=== PATIENT | male | born 1960 | race Caucasian/White ===

== ENCOUNTER 2016-08-30 13:59 | Outpatient (CLI) ==
[2016-06-21 03:43] VITALS: BMI 23.7
== END 2016-08-30 14:00 ==
LOC: AMBL 13:59
PROVIDERS: ATTEND Emergency Medicine
DX: R53.1 Weakness (principal); R42 Dizziness and giddiness; R68.89 Other general symptoms and signs; K72.90 Hepatic failure, unspecified without coma; R00.1 Bradycardia, unspecified

== ENCOUNTER 2016-09-02 12:37 | Outpatient (CLI) ==
[2016-06-21 03:43] VITALS: BMI 23.7
[2016-09-02 13:04] LABS: ALBUMIN 2.9 g/dL (3.4-5.0); ALBUMIN/GLOBULIN RATIO 1.07; ANION GAP 12.4; BILIRUBIN,TOTAL 1.41 mg/dL (0.00-1.20); BUN/CREATININE RATIO 19.31; CALCIUM 8.8 mg/dL (8.2-10.2); CREATININE 0.88 mg/dL (0.60-1.10); POTASSIUM 4.4 mmol/L (3.5-5.1); TOTAL PROTEIN 5.6 g/dL (6.4-8.2)
== END 2016-09-02 12:38 | disposition home or self-care (01) ==
LOC: NONPT 12:37
PROVIDERS: ATTEND Family Medicine
DX: E72.29 Other disorders of urea cycle metabolism (principal); K70.30 Alcoholic cirrhosis of liver without ascites; M62.81 Muscle weakness (generalized); K21.9 Gastro-esophageal reflux disease without esophagitis
CPT/HCPCS: 80053

== ENCOUNTER 2016-09-07 12:51 | Outpatient (CLI) | payer OTHER ==
[2016-06-21 03:43] VITALS: BMI 23.7
[2016-09-07 13:35] LABS: ALBUMIN 2.8 g/dL (3.4-5.0); ALBUMIN/GLOBULIN RATIO 1.17; ANION GAP 9.2; BILIRUBIN,TOTAL 0.99 mg/dL (0.00-1.20); BUN/CREATININE RATIO 20.73; CALCIUM 8.6 mg/dL (8.2-10.2); CREATININE 0.82 mg/dL (0.60-1.10); POTASSIUM 4.2 mmol/L (3.5-5.1); TOTAL PROTEIN 5.2 g/dL (6.4-8.2)
== END 2016-09-07 12:52 | disposition home or self-care (01) ==
LOC: NONPT 12:51
PROVIDERS: ATTEND Family Medicine
DX: E72.29 Other disorders of urea cycle metabolism (principal); K70.30 Alcoholic cirrhosis of liver without ascites; M62.81 Muscle weakness (generalized)
CPT/HCPCS: 80053; 82140

== ENCOUNTER 2016-09-13 11:30 | Outpatient (CLI) ==
[2016-06-21 03:43] VITALS: BMI 23.7
[2016-09-13 12:09] LABS: ALBUMIN 2.7 g/dL (3.4-5.0); ALBUMIN/GLOBULIN RATIO 1.04; ANION GAP 8.3; BILIRUBIN,TOTAL 1.05 mg/dL (0.00-1.20); BUN/CREATININE RATIO 16.27; CALCIUM 8.5 mg/dL (8.2-10.2); CREATININE 0.86 mg/dL (0.60-1.10); POTASSIUM 4.3 mmol/L (3.5-5.1); TOTAL PROTEIN 5.3 g/dL (6.4-8.2)
== END 2016-09-13 11:31 | disposition home or self-care (01) ==
LOC: NONPT 11:30
PROVIDERS: ATTEND Family Medicine
DX: M62.81 Muscle weakness (generalized) (principal); E72.29 Other disorders of urea cycle metabolism; K70.30 Alcoholic cirrhosis of liver without ascites
CPT/HCPCS: 80053; 82140

== ENCOUNTER 2016-09-20 20:59 | Outpatient (CLI) ==
[2016-06-21 03:43] VITALS: BMI 23.7
[2016-09-20 21:34] LABS: ALBUMIN 2.7 g/dL (3.4-5.0); ANION GAP 10.8; BILIRUBIN,TOTAL 1.05 mg/dL (0.00-1.20); BUN/CREATININE RATIO 14.28; CALCIUM 8.4 mg/dL (8.2-10.2); CREATININE 0.84 mg/dL (0.60-1.10); POTASSIUM 3.8 mmol/L (3.5-5.1); TOTAL PROTEIN 5.4 g/dL (6.4-8.2)
== END 2016-09-20 21:00 | disposition home or self-care (01) ==
LOC: NONPT 20:59
PROVIDERS: ATTEND Family Medicine
DX: K72.90 Hepatic failure, unspecified without coma (principal)
CPT/HCPCS: 80053; 82140

== ENCOUNTER 2016-09-27 13:54 | Outpatient (CLI) ==
[2016-06-21 03:43] VITALS: BMI 23.7
[2016-09-27 14:14] LABS: ALBUMIN 2.9 g/dL (3.4-5.0); ANION GAP 10.1; BILIRUBIN,TOTAL 1.24 mg/dL (0.00-1.20); BUN/CREATININE RATIO 14.94; CALCIUM 9.2 mg/dL (8.2-10.2); CREATININE 0.87 mg/dL (0.60-1.10); POTASSIUM 4.1 mmol/L (3.5-5.1); TOTAL PROTEIN 5.8 g/dL (6.4-8.2)
== END 2016-09-27 13:55 | disposition home or self-care (01) ==
LOC: NONPT 13:54
PROVIDERS: ATTEND Family Medicine
DX: K72.90 Hepatic failure, unspecified without coma (principal); I10 Essential (primary) hypertension; E11.43 Type 2 diabetes mellitus with diabetic autonomic (poly)neuropathy; I25.10 Atherosclerotic heart disease of native coronary artery without angina pectoris; R41.82 Altered mental status, unspecified
CPT/HCPCS: 80053; 82140

== ENCOUNTER 2016-10-04 14:12 | Outpatient (CLI) ==
[2016-06-21 03:43] VITALS: BMI 23.7
[2016-10-04 14:45] LABS: ALBUMIN 2.9 g/dL (3.4-5.0); ALBUMIN/GLOBULIN RATIO 0.97; ANION GAP 10.2; BILIRUBIN,TOTAL 0.88 mg/dL (0.00-1.20); BUN/CREATININE RATIO 17.24; CALCIUM 9.1 mg/dL (8.2-10.2); CREATININE 0.87 mg/dL (0.60-1.10); POTASSIUM 4.2 mmol/L (3.5-5.1); TOTAL PROTEIN 5.9 g/dL (6.4-8.2)
== END 2016-10-04 14:13 | disposition home or self-care (01) ==
LOC: NONPT 14:12
PROVIDERS: ATTEND Family Medicine
DX: K72.90 Hepatic failure, unspecified without coma (principal); I10 Essential (primary) hypertension; E11.43 Type 2 diabetes mellitus with diabetic autonomic (poly)neuropathy; I25.10 Atherosclerotic heart disease of native coronary artery without angina pectoris; R41.82 Altered mental status, unspecified
CPT/HCPCS: 80053; 82140

== ENCOUNTER 2016-10-11 10:13 | Outpatient (CLI) | payer OTHER ==
[2016-06-21 03:43] VITALS: BMI 23.7
== END 2016-10-11 10:14 | disposition home or self-care (01) ==
LOC: NONPT 10:13
PROVIDERS: ATTEND Family Medicine
DX: K72.90 Hepatic failure, unspecified without coma (principal)
CPT/HCPCS: 82140

== ENCOUNTER 2016-10-12 13:45 | Outpatient (CLI) ==
[2016-06-21 03:43] VITALS: BMI 23.7
[2016-10-12 14:09] LABS: ALBUMIN/GLOBULIN RATIO 0.97; ANION GAP 11.7; BILIRUBIN,TOTAL 1.75 mg/dL (0.00-1.20); BUN/CREATININE RATIO 13.13; CALCIUM 8.7 mg/dL (8.2-10.2); CREATININE 0.99 mg/dL (0.60-1.10); POTASSIUM 3.7 mmol/L (3.5-5.1); TOTAL PROTEIN 6.1 g/dL (6.4-8.2)
== END 2016-10-12 13:46 | disposition home or self-care (01) ==
LOC: NONPT 13:45
PROVIDERS: ATTEND Family Medicine
DX: K72.90 Hepatic failure, unspecified without coma (principal)
CPT/HCPCS: 80053

== ENCOUNTER 2016-10-18 14:50 | Outpatient (CLI) ==
[2016-06-21 03:43] VITALS: BMI 23.7
[2016-10-18 15:13] LABS: ALBUMIN/GLOBULIN RATIO 1.03; ANION GAP 11.2; BILIRUBIN,TOTAL 1.35 mg/dL (0.00-1.20); BUN/CREATININE RATIO 11.4; CALCIUM 8.6 mg/dL (8.2-10.2); CREATININE 1.14 mg/dL (0.60-1.10); POTASSIUM 4.2 mmol/L (3.5-5.1); TOTAL PROTEIN 5.9 g/dL (6.4-8.2)
== END 2016-10-18 14:51 | disposition home or self-care (01) ==
LOC: NONPT 14:50
PROVIDERS: ATTEND Family Medicine
DX: K72.90 Hepatic failure, unspecified without coma (principal); I10 Essential (primary) hypertension; E11.43 Type 2 diabetes mellitus with diabetic autonomic (poly)neuropathy; I25.10 Atherosclerotic heart disease of native coronary artery without angina pectoris; R41.82 Altered mental status, unspecified
CPT/HCPCS: 80053; 82140

== ENCOUNTER 2016-10-25 14:54 | Outpatient (CLI) ==
[2016-06-21 03:43] VITALS: BMI 23.7
[2016-10-25 15:12] LABS: HEMATOCRIT 35.9 % (42.0-52.0); HEMOGLOBIN 12.2 g/dl (14.0-18.0); MEAN CORPUSCULAR HEMOGLOBIN 32.3 pg (27.0-31.0); RED BLOOD COUNT 3.78 10^6/ul (4.70-6.10); WHITE BLOOD COUNT 5.78 K/ul (4.2-10.2)
[2016-10-25 15:35] LABS: ALBUMIN 2.7 g/dL (3.4-5.0); ALBUMIN/GLOBULIN RATIO 0.96; BILIRUBIN,TOTAL 1.01 mg/dL (0.00-1.20); BUN/CREATININE RATIO 14.28; CALCIUM 8.9 mg/dL (8.2-10.2); CREATININE 0.84 mg/dL (0.60-1.10); TOTAL PROTEIN 5.5 g/dL (6.4-8.2)
== END 2016-10-25 14:55 | disposition home or self-care (01) ==
LOC: NONPT 14:54
PROVIDERS: ATTEND Family Medicine
DX: K72.90 Hepatic failure, unspecified without coma (principal); I10 Essential (primary) hypertension; E11.43 Type 2 diabetes mellitus with diabetic autonomic (poly)neuropathy; I25.10 Atherosclerotic heart disease of native coronary artery without angina pectoris; R41.82 Altered mental status, unspecified
CPT/HCPCS: 80053; 82140; 83036; 85025; 85027

== ENCOUNTER 2016-11-01 12:30 | Outpatient (CLI) | payer OTHER ==
[2016-06-21 03:43] VITALS: BMI 23.7
[2016-11-01 12:56] LABS: ALBUMIN/GLOBULIN RATIO 0.83; ANION GAP 11.7; BILIRUBIN,TOTAL 1.21 mg/dL (0.00-1.20); BUN/CREATININE RATIO 17.44; CALCIUM 8.6 mg/dL (8.2-10.2); CREATININE 0.86 mg/dL (0.60-1.10); POTASSIUM 3.7 mmol/L (3.5-5.1); TOTAL PROTEIN 6.6 g/dL (6.4-8.2)
== END 2016-11-01 12:31 | disposition home or self-care (01) ==
LOC: NONPT 12:30
PROVIDERS: ATTEND Family Medicine
DX: K72.90 Hepatic failure, unspecified without coma (principal); E11.43 Type 2 diabetes mellitus with diabetic autonomic (poly)neuropathy; E72.29 Other disorders of urea cycle metabolism; K70.30 Alcoholic cirrhosis of liver without ascites; M54.17 Radiculopathy, lumbosacral region; M62.81 Muscle weakness (generalized)
CPT/HCPCS: 80053; 82140

== ENCOUNTER 2016-11-10 14:09 | Outpatient (CLI) ==
[2016-06-21 03:43] VITALS: BMI 23.7
[2016-11-10 14:32] LABS: ALBUMIN/GLOBULIN RATIO 1.03; ANION GAP 12.1; BILIRUBIN,TOTAL 1.18 mg/dL (0.00-1.20); BUN/CREATININE RATIO 14.6; CREATININE 0.89 mg/dL (0.60-1.10); POTASSIUM 4.1 mmol/L (3.5-5.1); TOTAL PROTEIN 5.9 g/dL (6.4-8.2)
== END 2016-11-10 14:10 | disposition home or self-care (01) ==
LOC: NONPT 14:09
PROVIDERS: ATTEND Family Medicine
DX: K72.90 Hepatic failure, unspecified without coma (principal); E11.43 Type 2 diabetes mellitus with diabetic autonomic (poly)neuropathy; E72.29 Other disorders of urea cycle metabolism; K70.30 Alcoholic cirrhosis of liver without ascites; M54.17 Radiculopathy, lumbosacral region; M62.81 Muscle weakness (generalized)
CPT/HCPCS: 80053; 82140

== ENCOUNTER 2016-11-15 10:16 | Outpatient (CLI) ==
[2016-06-21 03:43] VITALS: BMI 23.7
[2016-11-15 10:51] LABS: ALBUMIN 3.1 g/dL (3.4-5.0); ALBUMIN/GLOBULIN RATIO 1.07; ANION GAP 12.8; BILIRUBIN,TOTAL 1.4 mg/dL (0.00-1.20); BUN/CREATININE RATIO 13.63; CALCIUM 9.1 mg/dL (8.2-10.2); CREATININE 0.88 mg/dL (0.60-1.10); POTASSIUM 3.8 mmol/L (3.5-5.1)
== END 2016-11-15 10:17 | disposition home or self-care (01) ==
LOC: NONPT 10:16
PROVIDERS: ATTEND Family Medicine
DX: K72.90 Hepatic failure, unspecified without coma (principal)
CPT/HCPCS: 80053; 82140

== ENCOUNTER 2016-11-23 12:54 | Outpatient (CLI) ==
[2016-06-21 03:43] VITALS: BMI 23.7
[2016-11-23 13:20] LABS: ALBUMIN 3.1 g/dL (3.4-5.0); ANION GAP 9.7; BILIRUBIN,TOTAL 0.97 mg/dL (0.00-1.20); BUN/CREATININE RATIO 22.07; CALCIUM 8.9 mg/dL (8.2-10.2); CREATININE 0.77 mg/dL (0.60-1.10); POTASSIUM 3.7 mmol/L (3.5-5.1); TOTAL PROTEIN 6.2 g/dL (6.4-8.2)
== END 2016-11-23 12:55 | disposition home or self-care (01) ==
LOC: NONPT 12:54
PROVIDERS: ATTEND Family Medicine
DX: K72.90 Hepatic failure, unspecified without coma (principal); K70.30 Alcoholic cirrhosis of liver without ascites; E72.29 Other disorders of urea cycle metabolism; M54.17 Radiculopathy, lumbosacral region; M62.81 Muscle weakness (generalized); E11.43 Type 2 diabetes mellitus with diabetic autonomic (poly)neuropathy
CPT/HCPCS: 80053; 82140

== ENCOUNTER 2016-11-29 15:15 | Outpatient (CLI) | payer OTHER ==
[2016-06-21 03:43] VITALS: BMI 23.7
[2016-11-29 15:45] LABS: ALBUMIN 3.1 g/dL (3.4-5.0); ALBUMIN/GLOBULIN RATIO 1.29; BILIRUBIN,TOTAL 1.15 mg/dL (0.00-1.20); BUN/CREATININE RATIO 14.11; CALCIUM 8.9 mg/dL (8.2-10.2); CREATININE 0.85 mg/dL (0.60-1.10); TOTAL PROTEIN 5.5 g/dL (6.4-8.2)
== END 2016-11-29 15:16 | disposition home or self-care (01) ==
LOC: NONPT 15:15
PROVIDERS: ATTEND Family Medicine
DX: K72.90 Hepatic failure, unspecified without coma (principal)
CPT/HCPCS: 80053; 82140

== ENCOUNTER 2016-12-06 12:17 | Outpatient (CLI) | payer OTHER ==
[2016-06-21 03:43] VITALS: BMI 23.7
[2016-12-06 13:05] LABS: ALBUMIN 3.1 g/dL (3.4-5.0); ALBUMIN/GLOBULIN RATIO 1.11; ANION GAP 8.8; BILIRUBIN,TOTAL 1.71 mg/dL (0.00-1.20); BUN/CREATININE RATIO 14.11; CALCIUM 9.6 mg/dL (8.2-10.2); CREATININE 0.85 mg/dL (0.60-1.10); POTASSIUM 3.8 mmol/L (3.5-5.1); TOTAL PROTEIN 5.9 g/dL (6.4-8.2)
== END 2016-12-06 12:18 | disposition home or self-care (01) ==
LOC: NONPT 12:17
PROVIDERS: ATTEND Family Medicine
DX: K72.90 Hepatic failure, unspecified without coma (principal)
CPT/HCPCS: 80053; 82140

== ENCOUNTER 2016-12-13 10:27 | Outpatient (CLI) | payer OTHER ==
[2016-06-21 03:43] VITALS: BMI 23.7
[2016-12-13 11:02] LABS: ALBUMIN 3.3 g/dL (3.4-5.0); ANION GAP 13.5; BILIRUBIN,TOTAL 2.35 mg/dL (0.00-1.20); BUN/CREATININE RATIO 10.11; CALCIUM 9.5 mg/dL (8.2-10.2); CREATININE 0.89 mg/dL (0.60-1.10); POTASSIUM 3.5 mmol/L (3.5-5.1); TOTAL PROTEIN 6.6 g/dL (6.4-8.2)
== END 2016-12-13 10:28 | disposition home or self-care (01) ==
LOC: LAB 10:27
PROVIDERS: ATTEND Family Medicine
DX: K72.90 Hepatic failure, unspecified without coma (principal); K70.30 Alcoholic cirrhosis of liver without ascites; E72.29 Other disorders of urea cycle metabolism; E11.43 Type 2 diabetes mellitus with diabetic autonomic (poly)neuropathy; M54.17 Radiculopathy, lumbosacral region; M62.81 Muscle weakness (generalized)
CPT/HCPCS: 36415; 80053; 82140

== ENCOUNTER 2016-12-20 13:24 | Outpatient (CLI) ==
[2016-06-21 03:43] VITALS: BMI 23.7
[2016-12-20 13:41] LABS: ALBUMIN/GLOBULIN RATIO 1.07; ANION GAP 10.9; BILIRUBIN,TOTAL 1.24 mg/dL (0.00-1.20); BUN/CREATININE RATIO 10.58; CALCIUM 8.8 mg/dL (8.2-10.2); CREATININE 0.85 mg/dL (0.60-1.10); POTASSIUM 3.9 mmol/L (3.5-5.1); TOTAL PROTEIN 5.8 g/dL (6.4-8.2)
== END 2016-12-20 13:25 | disposition home or self-care (01) ==
LOC: NONPT 13:24
PROVIDERS: ATTEND Family Medicine
DX: K72.90 Hepatic failure, unspecified without coma (principal)
CPT/HCPCS: 80053; 82140

== ENCOUNTER 2016-12-27 10:19 | Outpatient (CLI) ==
[2016-06-21 03:43] VITALS: BMI 23.7
[2016-12-27 11:01] LABS: ALBUMIN 3.2 g/dL (3.4-5.0); ALBUMIN/GLOBULIN RATIO 1.14; ANION GAP 12.9; BILIRUBIN,TOTAL 1.82 mg/dL (0.00-1.20); BUN/CREATININE RATIO 11.7; CALCIUM 8.9 mg/dL (8.2-10.2); CREATININE 0.94 mg/dL (0.60-1.10); POTASSIUM 3.9 mmol/L (3.5-5.1)
== END 2016-12-27 10:20 | disposition home or self-care (01) ==
LOC: NONPT 10:19
PROVIDERS: ATTEND Family Medicine
DX: K72.90 Hepatic failure, unspecified without coma (principal)
CPT/HCPCS: 80053; 82140

== ENCOUNTER 2017-01-03 16:14 | Outpatient (CLI) ==
[2016-06-21 03:43] VITALS: BMI 23.7
[2017-01-03 16:53] LABS: POTASSIUM 4.3 mmol/L (3.5-5.1)
[2017-01-03 16:54] LABS: ALBUMIN 3.1 g/dL (3.4-5.0); ALBUMIN/GLOBULIN RATIO 1.11; ANION GAP 15.3; BILIRUBIN,TOTAL 1.05 mg/dL (0.00-1.20); BUN/CREATININE RATIO 12.79; CALCIUM 9.1 mg/dL (8.2-10.2); CREATININE 0.86 mg/dL (0.60-1.10); TOTAL PROTEIN 5.9 g/dL (6.4-8.2)
== END 2017-01-03 16:15 | disposition home or self-care (01) ==
LOC: NONPT 16:14
PROVIDERS: ATTEND Family Medicine
DX: K72.90 Hepatic failure, unspecified without coma (principal)
CPT/HCPCS: 80053; 82140

== ENCOUNTER 2017-01-12 14:40 | Outpatient (CLI) ==
[2016-06-21 03:43] VITALS: BMI 23.7
[2017-01-12 15:09] LABS: ALBUMIN 3.2 g/dL (3.4-5.0); ALBUMIN/GLOBULIN RATIO 1.1; ANION GAP 15.9; BILIRUBIN,TOTAL 1.71 mg/dL (0.00-1.20); BUN/CREATININE RATIO 11.7; CALCIUM 8.9 mg/dL (8.2-10.2); CREATININE 0.94 mg/dL (0.60-1.10); POTASSIUM 3.9 mmol/L (3.5-5.1); TOTAL PROTEIN 6.1 g/dL (6.4-8.2)
== END 2017-01-12 14:41 | disposition home or self-care (01) ==
LOC: NONPT 14:40
PROVIDERS: ATTEND Family Medicine
DX: K72.90 Hepatic failure, unspecified without coma (principal)
CPT/HCPCS: 80053; 82140

== ENCOUNTER 2017-01-18 20:05 | Outpatient (CLI) | payer OTHER ==
[2016-06-21 03:43] VITALS: BMI 23.7
[2017-01-18 20:10] LABS: ALBUMIN 3.1 g/dL (3.4-5.0); ALBUMIN/GLOBULIN RATIO 1.03; ANION GAP 13.9; BILIRUBIN,TOTAL 1.15 mg/dL (0.00-1.20); BUN/CREATININE RATIO 10.98; CALCIUM 9.1 mg/dL (8.2-10.2); CREATININE 0.91 mg/dL (0.60-1.10); POTASSIUM 3.9 mmol/L (3.5-5.1); TOTAL PROTEIN 6.1 g/dL (6.4-8.2)
== END 2017-01-18 20:06 | disposition home or self-care (01) ==
LOC: NONPT 20:05
PROVIDERS: ATTEND Family Medicine
DX: K72.90 Hepatic failure, unspecified without coma (principal)
CPT/HCPCS: 80053; 82140

== ENCOUNTER 2017-01-24 14:50 | Outpatient (CLI) ==
[2016-06-21 03:43] VITALS: BMI 23.7
[2017-01-24 15:08] LABS: ALBUMIN 3.2 g/dL (3.4-5.0); ALBUMIN/GLOBULIN RATIO 1.03; CALCIUM 9.5 mg/dL (8.2-10.2); POTASSIUM 3.9 mmol/L (3.5-5.1); TOTAL PROTEIN 6.3 g/dL (6.4-8.2)
[2017-01-24 15:09] LABS: ANION GAP 11.9; BILIRUBIN,TOTAL 1.6 mg/dL (0.00-1.20); BUN/CREATININE RATIO 8.18; CREATININE 1.1 mg/dL (0.60-1.10)
== END 2017-01-24 14:51 | disposition home or self-care (01) ==
LOC: NONPT 14:50
PROVIDERS: ATTEND Family Medicine
DX: K72.90 Hepatic failure, unspecified without coma (principal)
CPT/HCPCS: 80053; 82140

== ENCOUNTER 2017-01-31 13:45 | Outpatient (CLI) ==
[2016-06-21 03:43] VITALS: BMI 23.7
== END 2017-01-31 13:46 | disposition home or self-care (01) ==
LOC: NONPT 13:45
PROVIDERS: ATTEND Family Medicine
DX: K72.90 Hepatic failure, unspecified without coma (principal); I10 Essential (primary) hypertension
CPT/HCPCS: 82140

== ENCOUNTER 2017-02-07 15:30 | Outpatient (CLI) ==
[2016-06-21 03:43] VITALS: BMI 23.7
[2017-02-07 16:26] LABS: ANION GAP 13.1; BILIRUBIN,TOTAL 1.2 mg/dL (0.00-1.20); BUN/CREATININE RATIO 9.34; CALCIUM 9.2 mg/dL (8.2-10.2); CREATININE 1.07 mg/dL (0.60-1.10); POTASSIUM 4.1 mmol/L (3.5-5.1)
== END 2017-02-07 15:31 | disposition home or self-care (01) ==
LOC: LAB 15:30
PROVIDERS: ATTEND Family Medicine
DX: K72.90 Hepatic failure, unspecified without coma (principal); E11.43 Type 2 diabetes mellitus with diabetic autonomic (poly)neuropathy; M54.17 Radiculopathy, lumbosacral region; M62.81 Muscle weakness (generalized); E72.29 Other disorders of urea cycle metabolism; K70.30 Alcoholic cirrhosis of liver without ascites
CPT/HCPCS: 36415; 80053; 82140

== ENCOUNTER 2017-02-14 13:42 | Outpatient (CLI) ==
[2016-06-21 03:43] VITALS: BMI 23.7
[2017-02-14 15:07] LABS: ALBUMIN 3.1 g/dL (3.4-5.0); ALBUMIN/GLOBULIN RATIO 1.07; ANION GAP 15.8; BILIRUBIN,TOTAL 1.87 mg/dL (0.00-1.20); BUN/CREATININE RATIO 10.46; CALCIUM 9.4 mg/dL (8.2-10.2); CREATININE 0.86 mg/dL (0.60-1.10); POTASSIUM 3.8 mmol/L (3.5-5.1)
== END 2017-02-14 13:43 | disposition home or self-care (01) ==
LOC: NONPT 13:42
PROVIDERS: ATTEND Family Medicine
DX: K72.90 Hepatic failure, unspecified without coma (principal); E11.43 Type 2 diabetes mellitus with diabetic autonomic (poly)neuropathy; M54.17 Radiculopathy, lumbosacral region; M62.81 Muscle weakness (generalized); E72.29 Other disorders of urea cycle metabolism; K70.30 Alcoholic cirrhosis of liver without ascites
CPT/HCPCS: 80053; 82140

== ENCOUNTER 2017-02-21 14:08 | Outpatient (CLI) ==
[2016-06-21 03:43] VITALS: BMI 23.7
[2017-02-21 14:38] LABS: ALBUMIN 3.3 g/dL (3.4-5.0); ALBUMIN/GLOBULIN RATIO 1.1; ANION GAP 15.2; BILIRUBIN,TOTAL 1.85 mg/dL (0.00-1.20); BUN/CREATININE RATIO 10.22; CALCIUM 9.2 mg/dL (8.2-10.2); CREATININE 0.88 mg/dL (0.60-1.10); POTASSIUM 3.2 mmol/L (3.5-5.1); TOTAL PROTEIN 6.3 g/dL (6.4-8.2)
== END 2017-02-21 14:09 | disposition home or self-care (01) ==
LOC: NONPT 14:08
PROVIDERS: ATTEND Family Medicine
DX: K72.90 Hepatic failure, unspecified without coma (principal); E11.43 Type 2 diabetes mellitus with diabetic autonomic (poly)neuropathy; M54.17 Radiculopathy, lumbosacral region; M62.81 Muscle weakness (generalized); E72.29 Other disorders of urea cycle metabolism; K70.30 Alcoholic cirrhosis of liver without ascites
CPT/HCPCS: 80053; 82140

== ENCOUNTER 2017-02-28 11:58 | Outpatient (CLI) ==
[2016-06-21 03:43] VITALS: BMI 23.7
== END 2017-02-28 11:59 | disposition home or self-care (01) ==
LOC: NONPT 11:58
PROVIDERS: ATTEND Family Medicine
DX: K72.90 Hepatic failure, unspecified without coma (principal)
CPT/HCPCS: 82140

== ENCOUNTER 2017-03-07 15:24 | Outpatient (CLI) ==
[2016-06-21 03:43] VITALS: BMI 23.7
== END 2017-03-07 15:25 | disposition home or self-care (01) ==
LOC: NONPT 15:24
PROVIDERS: ATTEND Family Medicine
DX: K72.90 Hepatic failure, unspecified without coma (principal)
CPT/HCPCS: 82140

== ENCOUNTER 2018-01-09 14:56 | Outpatient (CLI) ==
[2016-06-21 03:43] VITALS: BMI 23.7
== END 2018-01-09 14:57 | disposition home or self-care (01) ==
LOC: LAB 14:56
PROVIDERS: ATTEND Emergency Medicine
DX: F41.1 Generalized anxiety disorder (principal); F33.1 Major depressive disorder, recurrent, moderate; K58.0 Irritable bowel syndrome with diarrhea; K70.30 Alcoholic cirrhosis of liver without ascites
CPT/HCPCS: 36415; 80053; 82140; 85025; 85610

== ENCOUNTER 2018-01-30 10:17 | Outpatient (CLI) ==
[2016-06-21 03:43] VITALS: BMI 23.7
== END 2018-01-30 10:18 | disposition home or self-care (01) ==
LOC: CAR 10:17
PROVIDERS: ATTEND Emergency Medicine
DX: R00.2 Palpitations (principal); K70.30 Alcoholic cirrhosis of liver without ascites
CPT/HCPCS: 36415; 82140; 84436; 84443; 84479; 93005; 93010

== ENCOUNTER 2018-03-14 12:28 | Outpatient (CLI) ==
[2016-06-21 03:43] VITALS: BMI 23.7
== END 2018-03-14 12:29 | disposition home or self-care (01) ==
LOC: FCC-LAB 12:28
PROVIDERS: ATTEND Nurse Practitioner Family
DX: K72.90 Hepatic failure, unspecified without coma (principal); I10 Essential (primary) hypertension
CPT/HCPCS: 36415; 80053; 85025; 85610

== ENCOUNTER 2018-05-08 11:59 | Outpatient (CLI) | payer OTHER ==
[2016-06-21 03:43] VITALS: BMI 23.7
== END 2018-05-08 12:00 | disposition home or self-care (01) ==
LOC: FCC-LAB 11:59
PROVIDERS: ATTEND Nurse Practitioner Family
DX: K70.30 Alcoholic cirrhosis of liver without ascites (principal); I10 Essential (primary) hypertension
CPT/HCPCS: 36415; 80053; 82140

== ENCOUNTER 2018-10-26 09:59 | Outpatient (CLI) | payer OTHER ==
[2016-06-21 03:43] VITALS: BMI 23.7
== END 2018-10-26 10:00 | disposition home or self-care (01) ==
LOC: RHC-LAB 09:59 → FCC-LAB 10:00
PROVIDERS: ATTEND Nurse Practitioner Family
DX: Z51.81 Encounter for therapeutic drug level monitoring (principal); Z79.899 Other long term (current) drug therapy
CPT/HCPCS: 80306

== ENCOUNTER 2018-11-24 14:06 | Outpatient (CLI) | payer OTHER ==
[2016-06-21 03:43] VITALS: BMI 23.7
== END 2018-11-24 14:07 | disposition home or self-care (01) ==
LOC: LAB 14:06
PROVIDERS: ATTEND Nurse Practitioner Family
DX: Z51.81 Encounter for therapeutic drug level monitoring (principal); Z79.899 Other long term (current) drug therapy; I10 Essential (primary) hypertension; K70.30 Alcoholic cirrhosis of liver without ascites
CPT/HCPCS: 36415; 80053; 80306; 82140; 85025; 85610

== ENCOUNTER 2018-11-24 15:57 | Outpatient (CLI) | payer OTHER ==
[2016-06-21 03:43] VITALS: BMI 23.7
== END 2018-11-24 15:58 | disposition home or self-care (01) ==
LOC: RHC-LAB 15:57 → FCC-LAB 15:58
PROVIDERS: ATTEND Nurse Practitioner Family
DX: Z51.81 Encounter for therapeutic drug level monitoring (principal); Z79.899 Other long term (current) drug therapy; I10 Essential (primary) hypertension; K70.30 Alcoholic cirrhosis of liver without ascites
CPT/HCPCS: 36415; 80053; 82140; 85025; 85610

== ENCOUNTER 2018-11-30 08:01 | Outpatient (CLI) | payer OTHER ==
[2016-06-21 03:43] VITALS: BMI 23.7
== END 2018-11-30 08:02 | disposition home or self-care (01) ==
LOC: LAB 08:01
PROVIDERS: ATTEND Nurse Practitioner Family
DX: E87.6 Hypokalemia (principal); K70.30 Alcoholic cirrhosis of liver without ascites; R17 Unspecified jaundice
CPT/HCPCS: 36415; 80053

== ENCOUNTER 2019-02-16 13:14 | Outpatient (CLI) ==
[2019-01-19 12:58] VITALS: BMI 24.1
== END 2019-02-16 13:15 | disposition home or self-care (01) ==
LOC: LAB 13:14
PROVIDERS: ATTEND Nurse Practitioner Family
DX: K74.60 Unspecified cirrhosis of liver (principal)
CPT/HCPCS: 36415; 82140

== ENCOUNTER 2019-02-21 16:23 | Outpatient (CLI) ==
[2019-01-19 12:58] VITALS: BMI 24.1
--- NOTE | 2019-02-21 17:14 | US ---
EXAM: SCROTAL ULTRASOUND HISTORY: Scrotal pain FINDINGS: Scrotal ultrasound exam performed using real time mehta-scale and color-flow Doppler imaging. The right testis measures 4.0 x 2.4 x 2.9 cm and the left measures 2.8 x 2.0 x 2.4 cm. Testes demo nstrated adequate blood flow bilaterally and symmetric echogenicity. Cannot exclude mild microlithia sis within both testes. There is a linear soft tissue opacity within the right scrotum thought to re present a appendage testis. Relatively large bilateral hydroceles are present. Varicoceles are sugg ested at least on the left. The scrotal wall is thickened. IMPRESSION: 1. Testes demonstrated adequate blood flow and normal, symmetric echogenicity. Cannot exclude micro lithiasis. 2. Relatively large bilateral hydroceles. 3. Varicocele, at least on the left. 4. Thickened scrotal wall suggesting cellulitis.
== END 2019-02-21 16:24 | disposition home or self-care (01) ==
LOC: RAD 16:23
PROVIDERS: ATTEND Nurse Practitioner Family
DX: N50.819 Testicular pain, unspecified (principal)

== ENCOUNTER 2019-02-26 02:52 | Emergency (ER) | payer OTHER ==
[2019-02-26 02:55] VITALS: BP 151/91; TEMP 97.9; BMI 25.6
--- NOTE | 2019-02-26 03:21 | ED.PDOC ---
General ED Provider: Dr. YASMIN JACKSON Chief Complaint: Penile Problem Stated Complaint: Right Testicular pain for two weeks, was seen in the clinic and had an US done and he was placed on Bactrium. States that the bactrium keeps him up at night and that the pain is worse. Time Seen by Physician: 03:00 Mode of Arrival: Walk-In Information Source: Patient Primary Care Provider: MARTIR TRIVEDI Nursing and Triage Documentation Reviewed and Agree: Yes Does patient meet sepsis criteria?: No System Inflammatory Response Syndrome: Not Applicable Sepsis Protocol: For patient's 13 years and over: Temp is 96.8 and below OR 101 and greater Pulse >90 BPM Resp >20/minute Acutely Altered Mental Status Are patient's symptoms suggestive of a new infection, such as: -Pneumonia -Skin, Soft Tissue -Endocarditis -UTI -Bone, Joint Infection -Implantable Device -Acute Abdominal Infection -Wound Infection -Meningitis -Blood Stream Catheter Infection -Unknown Review of Systems - Review Of Systems Constitutional: Reports: No symptoms Eyes: Reports: No symptoms Ears, Nose, Mouth, Throat: Reports: No symptoms Respiratory: Reports: No symptoms Cardiac: Reports: No symptoms GI: Reports: No symptoms : Reports: Pain, Other (right testicular pain ) Musculoskeletal: Reports: No symptoms Skin: Reports: No symptoms Neurological: Reports: Anxiety Endocrine: Reports: No symptoms Hematologic/Lymphatic: Reports: No symptoms All Other Systems: Reviewed and Negative Past Medical History - Past Medical History Previously Healthy: Yes Endocrine: Reports: DM 2, Dyslipidemia Cardiovascular: Reports: Hypertension Respiratory: Reports: Unknown Hematological: Reports: None Gastrointestinal: Reports: GERD, Liver, Other (ALCOHOLIC LIVER DISEASE CIRRHOSIS ) Genitourinary: Reports: Kidney stones, Other (testicular pain recently diagnosed ) Neuro/Psych: Reports: Migraine, Anxiety, Depression Musculoskeletal: Reports: Back Pain Cancer: Reports: None Other Pertinent Past Medical History: Alcoholism history - Surgical History General Surgical History: Reports: Back Surgery (and neck surgery ) - Family History Family History: Reports: Unknown - Social History Smoking Status: Current every day smoker, Light tobacco smoker Hx Substance Use: No Alcohol Screening: None - Immunizations Tetanus Shot up to Date: Yes Physical Exam - Physical Exam Appearance: Ill-appearing Ill-appearing: Mild Pain Distress: Moderate Neck: Supple Respiratory: Airway patent, Breath sounds clear, Breath sounds equal, Respirations nonlabored Cardiovascular: RRR, Pulses normal, No rub, No murmur GI/: Soft, Tender (right testicule worse posteriorly. No evidence of hernia on palpation while coughing.) Musculoskeletal: Normal strength Skin: Warm, Dry, Normal color Neurological: Sensation intact, Motor intact, Reflexes intact, Cranial nerves intact, Alert, Oriented Psychiatric: Anxious Interpretation - Radiology Interpretation Radiology Interpretation By: Radiologist (done 02/21/19) Radiology Results: Positive (adequte blood flow , Larger bilateral Hydrocele, varicocele at least on the left, scrotal wall suggesting cellulitis) Exam Interpreted: Other (Ultrasound ) Critical Care Note - Critical Care Note Total Time (mins): 0 Course - Course Orders, Labs, Meds: Orders Category Date Time Status Hydromorphone HCl [Dilaudid 1 mg/ml Syringe] MEDS 02/26/19 03:52 Discontinued 1 mg .ROUTE .STK-MED ONE Hydromorphone HCl [Dilaudid 1 mg/ml Syringe] MEDS 02/26/19 04:00 Discontinued 1 mg IM ONCE STA Ibuprofen [Motrin] MEDS 02/26/19 03:18 Discontinued 800 mg PO ONCE STA Levofloxacin [Levaquin] MEDS 02/26/19 03:18 Discontinued 500 mg PO ONCE STA Medications Discontinued Medications Generic Name Dose Route Start Last Admin Trade Name Freq PRN Reason Stop Dose Admin Hydromorphone HCl 1 mg 02/26/19 04:00 02/26/19 04:01 Dilaudid 1 Mg/Ml Syringe IM 02/26/19 04:01 1 mg ONCE STA Administration Ibuprofen 800 mg 02/26/19 03:18 02/26/19 03:25 Motrin PO 02/26/19 03:19 800 mg ONCE STA Administration Levofloxacin 500 mg 02/26/19 03:18 02/26/19 03:25 Levaquin PO 02/26/19 03:19 500 mg ONCE STA Administration Vital Signs: Temp Pulse Resp BP Pulse Ox 02/26/19 02:52 97.9 F 94 H 16 151/91 H 98 Departure - Departure Time of Disposition: 03:50 Disposition: HOME SELF-CARE Discharge Problem: Orchitis of right testicle, Acute epididymitis Instructions: Epididymo-Orchitis (ED) Condition: Good Pt referred to PMD for follow-up: Yes IPMP verified?: No Additional Instructions: STOP BACTRIUM TAKE LEVAQUIN DAILY FOR 10 DAYS FOLLOW UP WITH PCP IN 3-5 DAYS TAKE IBUPROFEN NEEDED FOR PAIN Prescriptions: Ibuprofen [Motrin] 600 mg PO Q6H PRN #30 tablet PRN Reason: Analgesia Levofloxacin [Levaquin] 500 mg PO DAILY #10 tablet Allergies/Adverse Reactions: Allergies acetaminophen [From Tylenol] Allergy (Severe, Unverified 02/26/19 02:55) Abdominal Pain Vomitting codeine Adverse Reaction (Verified 02/26/19 02:55) Home Medications: Ambulatory Orders Desipramine HCl [Norpramin] 25 mg PO DAILY 01/19/19 Ibuprofen [Motrin] 600 mg PO Q6H PRN #30 tablet 02/26/19 Levofloxacin [Levaquin] 500 mg PO DAILY #10 tablet 02/26/19 Disposition Discussed With: Patient
[2019-02-26] MEDS: MOTRIN PO STA (03:25)
[2019-02-26] MEDS: LEVAQUIN PO STA (03:25)
[2019-02-26] MEDS: DILAUDID 1 MG/ML SYRINGE IM STA (04:01)
[2019-02-26] MEDS: DILAUDID 1 MG/ML SYRINGE ONE (04:02)
== END 2019-02-26 04:02 | disposition home or self-care (01) ==
LOC: ED 02:52
DX: N45.3 Epididymo-orchitis (principal); F17.210 Nicotine dependence, cigarettes, uncomplicated
CPT/HCPCS: 96372; 99282